=== PATIENT | female | born 1975 | race Caucasian/White ===

== ENCOUNTER → 2016-12-30 | Outpatient (CLI) | payer OTHER | LOC: ULTRA 08:06 | DX: R10.11 Right upper quadrant pain (principal) ==

== ENCOUNTER 2018-08-17 19:21 | Emergency (ER) | payer OTHER ==
[~2018-08-17] VITALS: Ht 172.7 cm; Wt 63.5 kg
[2018-08-17 20:04] LABS: BASOPHILS 0.9 % (0.0-2.0); HEMATOCRIT 37.4 % (37.0-47.0); HEMOGLOBIN 12.5 gm/dL (12.0-15.0); LYMPHOCYTES 36.4 % (24.0-44.0); MCH 29.3 pg (26.0-34.0); MCHC 33.4 g/dL (28.0-37.0); MCV 87.8 fL (80.0-100.0); MONOCYTES 9.6 % (1.0-8.0); PLATELET COUNT 286 thou/uL (150-400); POLYS 48.1 % (36.0-66.0); RBC 4.26 mil/uL (4.20-5.00); RDW 15.3 % (10.5-14.5); WBC 6.2 thou/uL (4.0-11.0)
[2018-08-17 22:00] VITALS: BP 136/90
--- NOTE | 2018-08-18 16:53 | EKG ---
[address] [place] [address] ELECTROCARDIOGRAM REPORT Name: ISI MCKEON Room #: DEP SONI De La Rosa#: [id number] ������������������ Admission: 08/17/18 ������������������ Attend Phys: Discharge: 08/17/18 ������������������ Date of : 73 Report #: [id number] ����������������������������������������������������������������� [id number] THIS REPORT FOR: //name// [facility] ED Test Date: 2018-08-17 Test Time: 19:34:13 Pat Name: ISI MCKEON Department: Room: Gender: F [employer] Consultant: JAXSON : 1975 Requested By: Julia Grimaldo Order Number: [id number] MD: Carter Jett Measurements Intervals [place] Rate: 100 P: 81 OR: 161 QRS: 70 QRSD: 82 T: 54 QT: 348 QTc: 449 Interpretive Statements Sinus tachycardia Baseline wander in lead(s) V3,V5 No previous ECG available for comparison Electronically Signed On 08-18-2018 16:53:01 CDT by Carter Jett [email or web address] ��������������������������������������������� <ELECTRONICALLY SIGNED> ���������������������������������������� By: Carter Jett MD ��������������������������������������������� 08/18/18 1653 1934 193 MD GREG Hager
== END 2018-08-17 22:04 | disposition home or self-care (01) ==
LOC: ER 19:21
PROVIDERS: Student in an Organized Health Care Education/Training Program
DX: F41.9 Anxiety disorder, unspecified (principal)